=== PATIENT | female | born 1945 | race Caucasian/White ===

== ENCOUNTER 2017-12-24 12:19 | Inpatient (IN) | payer MEDICARE, BC ==
[~2017-12-24] VITALS: Ht 152.4 cm; Wt 95.2 kg
[2017-12-24] MEDS ORDERED: aspirin 81mg tab.chew PO ONE ×2 (12:30→13:25)
[2017-12-24 12:49] LABS: BASOPHILS # (AUTO) 0.1 X10'3 (0-0.2); BASOPHILS % (AUTO) 0.6 % (0-1); EOSINOPHILS # (AUTO) 0.1 X10'3 (0-0.9); EOSINOPHILS % (AUTO) 1.3 % (0-6); HEMATOCRIT 39.3 % (35.0-45.0); HEMOGLOBIN 12.8 g/dl (12.0-16.0); LYMPHOCYTES # (AUTO) 1.1 X10'3 (1.1-4.8); LYMPHOCYTES % (AUTO) 10.9 % (21-51); MEAN CORPUSCULAR HEMOGLOBIN 26.3 PG (27.0-31.0); MEAN CORPUSCULAR HGB CONC 32.6 % (33.0-36.5); MEAN CORPUSCULAR VOLUME 80.7 FL (78-98); MEAN PLATELET VOLUME 9.1 FL (7.4-10.4); MONOCYTES # (AUTO) 1.2 X10'3 (0-0.9); MONOCYTES % (AUTO) 11.5 % (2-12); NEUTROPHILS # (AUTO) 7.8 X10'3 (1.8-7.7); NEUTROPHILS % (AUTO) 75.7 % (42-75); PLATELET COUNT 232 X10'3 (140-440); RED BLOOD COUNT 4.88 X10'6 (4.20-5.60); RED CELL DISTRIBUTION WIDTH 16.3 % (11.5-14.5); WHITE BLOOD COUNT 10.3 X10'3 (4.5-11.0)
[2017-12-24 12:58] LABS: INR 1.3 INR; PARTIAL THROMBOPLASTIN TIME 32 SECONDS (22-32); PROTHROMBIN TIME 13.4 SECONDS (9.0-12.0)
[2017-12-24 13:03] LABS: ALANINE AMINOTRANSFERASE 69 U/L (12-78); ALBUMIN/GLOBULIN RATIO 1.3 (1.1-1.5); ALKALINE PHOSPHATASE 79 IU/L (46-116); ANION GAP 9 (8-16); ASPARTATE AMINO TRANSFERASE 65 U/L (10-37); BILIRUBIN,TOTAL 1.5 MG/DL (0.1-1.0); BLOOD UREA NITROGEN 24 MG/DL (7-18); BUN/CREATININE RATIO 21.6 (6.6-38.0); CALCIUM 9.5 MG/DL (8.5-10.1); CHLORIDE 93 MMOL/L (99-107); CREATININE 1.11 MG/DL (0.40-0.90); GLUCOSE 109 MG/DL (70-104); POTASSIUM 4.3 MMOL/L (3.5-5.1); SODIUM 130 MMOL/L (135-145); TOTAL CARBON DIOXIDE 28.1 MMOL/L (24-32); TOTAL PROTEIN 7.1 G/DL (6.4-8.2); eGFR 48 ML/MIN
[2017-12-24] MEDS ORDERED: metoprolol tartrate 1mg/ml inj IV ONE (13:25)
[2017-12-24] MEDS ORDERED: acetaminophen 325mg tablet PO PRN ×2 (13:40)
[2017-12-24] MEDS ORDERED: morphine 4 MG/ML inj SYRINge IV PRN ×2 (13:40)
[2017-12-24] MEDS ORDERED: mag hydrox/Alum hydrox/simeth 30ml oral suspension PO PRN (13:40)
[2017-12-24] MEDS ORDERED: ondansetron/PF 4mg/2ml inj IV PRN (13:40)
[2017-12-24] MEDS ORDERED: magnesium hydroxide 30ml (MOM) UD suspension PO PRN (13:40)
[2017-12-24] MEDS ORDERED: HYDROcodone/acetaminophen 5mg/325mg tablet PO PRN (13:40)
[2017-12-24] MEDS ORDERED: ESOM40CA54 (15:17)
[2017-12-24] MEDS ORDERED: TRAM50TA2 (15:17)
[2017-12-24] MEDS ORDERED: IRBE1TAB31 (15:17)
[2017-12-24] MEDS ORDERED: CELE200C (15:17)
[2017-12-24] MEDS ORDERED: LEVO200T (15:17)
[2017-12-24] MEDS ORDERED: ALBU18HF2 INH (15:18)
[2017-12-24 16:06] VITALS: BP 111/70
[2017-12-24] MEDS ORDERED: traMADol 50MG tablet PO PRN (18:05)
[2017-12-24 19:00] VITALS: BP 111/79
[2017-12-24 19:06] VITALS: BP 106/72
[2017-12-24] MEDS: metoprolol tartrate 25mg tablet PO SCH ×2 (19:09→20:55)
[2017-12-24 20:51] VITALS: BP 100/64
[2017-12-24] MEDS: furosemide 20 MG/2 ML vial IV SCH (20:51)
[2017-12-24 23:00] VITALS: BP 109/65
[2017-12-25] MEDS ORDERED: celeCOXIB 100mg capsule PO SCH ×3 (00:30→01:30)
[2017-12-25 05:49] VITALS: BP 98/70
[2017-12-25 06:00] VITALS: BP 107/67
[2017-12-25 06:07] LABS: BASOPHILS % (AUTO) 0.3 % (0-1); EOSINOPHILS # (AUTO) 0.2 X10'3 (0-0.9); HEMATOCRIT 38.2 % (35.0-45.0); HEMOGLOBIN 12.7 g/dl (12.0-16.0); LYMPHOCYTES # (AUTO) 1.5 X10'3 (1.1-4.8); LYMPHOCYTES % (AUTO) 16.9 % (21-51); MEAN CORPUSCULAR HEMOGLOBIN 26.9 PG (27.0-31.0); MEAN CORPUSCULAR HGB CONC 33.2 % (33.0-36.5); MEAN CORPUSCULAR VOLUME 81.1 FL (78-98); MEAN PLATELET VOLUME 9.5 FL (7.4-10.4); MONOCYTES # (AUTO) 1.1 X10'3 (0-0.9); MONOCYTES % (AUTO) 12.1 % (2-12); NEUTROPHILS # (AUTO) 6.1 X10'3 (1.8-7.7); NEUTROPHILS % (AUTO) 68.7 % (42-75); PLATELET COUNT 202 X10'3 (140-440); RED BLOOD COUNT 4.71 X10'6 (4.20-5.60); RED CELL DISTRIBUTION WIDTH 16.3 % (11.5-14.5); WHITE BLOOD COUNT 8.9 X10'3 (4.5-11.0)
[2017-12-25 07:08] LABS: ALBUMIN 3.8 G/DL (3.4-5.0); ANION GAP 8 (8-16); BLOOD UREA NITROGEN 28 MG/DL (7-18); BUN/CREATININE RATIO 22.4 (6.6-38.0); CALCIUM 9.1 MG/DL (8.5-10.1); CHLORIDE 96 MMOL/L (99-107); CREATININE 1.25 MG/DL (0.40-0.90); GLUCOSE 102 MG/DL (70-104); POTASSIUM 4.3 MMOL/L (3.5-5.1); SODIUM 131 MMOL/L (135-145); TOTAL CARBON DIOXIDE 26.9 MMOL/L (24-32); eGFR 42 ML/MIN
[2017-12-25] MEDS ORDERED: enoxaparin 40mg/0.4ml syringe SUBCUT SCH (08:00)
[2017-12-25] MEDS: furosemide 20 MG/2 ML vial IV SCH (08:25)
[2017-12-25] MEDS: metoprolol tartrate 25mg tablet PO SCH (08:25)
[2017-12-25] MEDS ORDERED: IRBE1TAB65 PO (09:20)
[2017-12-25] MEDS ORDERED: IRBE1TAB31 PO (09:20)
[2017-12-25] MEDS ORDERED: LEVO125T PO (09:20)
[2017-12-25] MEDS ORDERED: SYN0.088T PO (09:20)
[2017-12-25] MEDS ORDERED: TRAM50TA2 PO (09:20)
[2017-12-25] MEDS ORDERED: CELE-193 PO (09:20)
[2017-12-25] MEDS ORDERED: traMADol 50MG tablet PO PRN (09:25)
[2017-12-25 11:00] VITALS: BP 100/69
[2017-12-25] MEDS ORDERED: FURO-150 PO (11:51)
[2017-12-25] MEDS ORDERED: METO25TA6 PO ×2 (11:51→11:53)
[2017-12-25] MEDS ORDERED: APIX5TAB3 PO (11:51)
[2017-12-25] MEDS ORDERED: apixaban 5mg tablet PO SCH (20:00)
== END 2017-12-25 14:20 | disposition home or self-care (01) | DRG 308 ==
LOC: ER 12:19 → ED HOLD 13:36 → PCU 3S 16:00
PROVIDERS: ADMIT Internal Medicine; ATTEND Internal Medicine
DX: I48.91 Unspecified atrial fibrillation (principal); I50.21 Acute systolic (congestive) heart failure; Z68.41 Body mass index [BMI] 40.0-44.9, adult; E87.1 Hypo-osmolality and hyponatremia; N17.9 Acute kidney failure, unspecified; I08.0 Rheumatic disorders of both mitral and aortic valves; M19.90 Unspecified osteoarthritis, unspecified site; E66.01 Morbid (severe) obesity due to excess calories; R55 Syncope and collapse; E03.9 Hypothyroidism, unspecified; Z90.710 Acquired absence of both cervix and uterus; Z91.041 Radiographic dye allergy status; Z88.2 Allergy status to sulfonamides; Z79.899 Other long term (current) drug therapy; Z79.890 Hormone replacement therapy
CPT/HCPCS: 36415; 71045; 80048; 80053; 83880; 84443; 84484; 85025; 85610; 85730; 87070; 93005; 93306; J1650; J1940; J3490